=== PATIENT | male | born 1950 | race Caucasian/White ===

== ENCOUNTER → 2016-07-20 | Outpatient (CLI) | payer OTHER ==
[~2016-07-20] VITALS: Ht 177.8 cm; Wt 90.7 kg
[~2016-07-20] MED LIST: ANTIOXIDANT FO1 EACH PO; ARMOUR THYROID60 M1 PO; CARDIO TABS PO; CO Q-10200 MG PO; ELIQUIS5 MG PO; FELODIPINE 5 MG5 M1 PO; GALZIN25 MG PO; IRON PO; LOPRESSOR100 M1 PO; MULTIVITAMINS PO; PROBIOTIC1 EAC1 PO; PROSTATE HEALT1 EAC1 PO; PURE TAURINE500 MG PO; SILDENAFIL20 MG PO; VALSARTAN320 MG PO; VITAMIN B COMP1 EACH PO; VITAMIN D350000 UNIT PO; VITAMIN D50000 UNIT PO; [UNRECOGNIZED DRUG - OTHER] PO; [UNRECOGNIZED DRUG - OTHER] PO
--- NOTE | ~2016-07-20 | S ---
[facility] [place] [address] SURGICAL PATH RPT PROCEDURE Name: BRETT OVIEDO Room #: REG CLIsak M.Alejandra.#: [id number] Admission: 07/20/16 Date of : 50 Discharge: Report #: [id number] Path Case #: [id number] PATHOLOGY REPORT COLLECTION DATE: 07/20/2016 RECEIVED DATE: 07/20/2016 SUBMITTING PHYS: Dr. Brayan Greene OTHER PHYS: Dr. Gustavo Cruz SPECIMEN(S) RECEIVED: A.50 cm polyp * * * * * * * * * * * * FINAL DIAGNOSIS: Polyp, 50 cm polyp, endoscopic biopsy: - Hyperplastic polyp and a lymphoid aggregate. - Negative for dysplasia. (IUV:csd; d/t: 07/23/2016) PATHOLOGIST: Robina Puente M.D. REPORT ELECTRONICALLY SIGNED BY: Robina Puente M.D. DATE/TIME: 07/23/2016 16:39 * * * * * * * * * * * * GROSS PATHOLOGY: Received in formalin labeled "Brett Oviedo, 50 cm," are three segments of odonnell soft tissue measuring 0.5 x 0.4 x 0.1 cm in aggregate dimensions and ranging from 0.1 to 0.4 cm in maximum dimension. The specimen is submitted entirely in cassette A1. (CAA; 07/20/2016) CLINICAL HISTORY: Rectal bleeding INITIAL CPT CODE(S): A; 12727 Professional services performed by [facility] at [facility] [address], [place] [address] Technical services performed by [facility] at [address] [place] [address], [place] [address], [place] [address]. [facility] [address] [place] [address] SURGICAL PATH RPT PROCEDURE Name: BRETT OVIEDO Room #: REG JANETTE Romero.#: [id number] Admission: 07/20/16 Date of : 50 Discharge: Report #: [id number] Path Case #: [id number] [place] [id number] [address] [address] PHONE: [phone] DIRECTOR: Kuldeep Brewster M.D. * * * END OF REPORT * * *
--- NOTE | ~2016-07-20 | P ---
[facility] [place] [address] PROCEDURE REPORT Name: BRETT FOWLER Room #: REG [facility].#: [id number] Admission: 07/20/16 Attend Phys: Brayan Greene MD Discharge: Date of : 50 Report #: [id number] THIS REPORT FOR: //name// CC: Gustavo Greene DATE OF SERVICE: 07/20/2016 BRIEF HISTORY: The patient is a 66-year-old male for average risk screening colonoscopy. This is his first colonoscopy. PREOPERATIVE DIAGNOSIS: Average risk screening. POSTOPERATIVE DIAGNOSES: 1. Diminutive polyp at 50 cm. 2. Moderate sigmoid diverticulosis coli. 3. Moderate internal hemorrhoids. MEDICATIONS: Deep sedation with propofol per anesthesia. SPECIMEN: Polyp from 50 cm. ESTIMATED BLOOD LOSS: 3 mL. PROCEDURE: Colonoscopy to cecum and terminal ileum with biopsy. FINDINGS: Prior to propofol sedation, procedure of colonoscopy discussed with the patient as well as potential risks and its complications. He indicates he understands and desires to proceed. DESCRIPTION OF PROCEDURE: With the patient in left lateral decubitus position, digital examination was completed which revealed no abnormalities. Subsequently, the Second Light video colonoscope was introduced in the rectum, advanced under direct vision to the cecum. Done with minimal difficulty. The cecum was identified by the ileocecal valve and the appendiceal orifice. I was able to visualize the distal segment of terminal ileum, which was inspected and noted to be unremarkable. At that point, the scope was slowly withdrawn and careful circumferential views were obtained including retroflexing the scope in the ascending colon. Upon slow withdrawal of the scope, there was noted to be some bilious material in the proximal colon. We were able to irrigate and remove much of this material, but not every last bit of it. Overall, reasonably good views were obtained. As we withdrew the scope, the mucosa was inspected and found to be within normal limits. No evidence of inflammatory disease. No abnormalities were noted until the left colon was reached and at 50 cm, in the mid descending colon, a diminutive polyp seen and removed by biopsy. Scope was [facility] [address] [place] [address] PROCEDURE REPORT Name: BRETT FOWLER Room #: REG JANETTE Bynum#: [id number] Admission: 07/20/16 Attend Phys: Brayan Greene MD Discharge: Date of : 50 Report #: [id number] further withdrawn. He was noted to have moderately severe diverticular disease of the sigmoid colon without endoscopic evidence of diverticulitis. Scope was withdrawn in the rectum. Upon retroflexion, moderately large internal hemorrhoids were seen. There was no evidence of bleeding. Scope was withdrawn. The patient tolerated the procedure well. CONDITION OF THE PATIENT UPON DISCHARGE: Following procedure, the patient drowsy, aroused, conversant and will be discharged home when fully ambulatory. INSTRUCTIONS TO THE PATIENT AND FAMILY AT THE TIME OF DISCHARGE: The patient was found 1 diminutive polyp as described. We will follow up on the path. If the polyp is an adenoma, he should return in 5 years. If it is hyperplastic polyp, then 10 years would be indicated. Suggest high fiber diet for his diverticular disease. He returned to the care of Dr. Gustavo Cruz, return to us as needed. This is the patient's first colonoscopy. Withdrawal time from the cecum was 20 minutes. <ELECTRONICALLY SIGNED> By: Brayan Greene MD 07/24/16 1224 [id number] Brayan Greene MD /nt
== END ==
LOC: GI 09:08
DX: Z12.11 Encounter for screening for malignant neoplasm of colon (principal); K63.5 Polyp of colon; K57.30 Diverticulosis of large intestine without perforation or abscess without bleeding; K64.8 Other hemorrhoids; I10 Essential (primary) hypertension; I50.9 Heart failure, unspecified; I48.91 Unspecified atrial fibrillation; E03.9 Hypothyroidism, unspecified; Z86.73 Personal history of transient ischemic attack (TIA), and cerebral infarction without residual deficits
CPT/HCPCS: 62110; 62900